=== PATIENT | female | born 1975 | race Caucasian/White ===

== ENCOUNTER 2022-01-18 17:15 | Emergency (ER) | payer OTHER ==
[2022-01-18] MEDS ORDERED: BACLOFEN 10MG T10 MG PO (20:27)
[2022-01-18] MEDS ORDERED: NAPROXEN500 MG PO (20:27)
[2022-01-18] MEDS ORDERED: PREDNISONE 20MG20 MG PO (20:27)
== END 2022-01-18 20:40 | disposition home or self-care (01) ==
LOC: FER 17:15
DX: M77.8 Other enthesopathies, not elsewhere classified (principal); Z88.0 Allergy status to penicillin
CPT/HCPCS: 73030; 73080; 96372; J1100; J1885